=== PATIENT | male | born 1990 | race American Indian/Alaskan Native ===

== ENCOUNTER 2017-01-07 11:55 | Emergency (ER) | payer OTHER ==
[2017-01-07 12:05] VITALS: BP 132/52
--- NOTE | 2017-01-07 12:51 | Emergency Department Report ---
HPI - General Chief Complaint: Extremity Injury, Lower Time Seen by Provider: 01/07/17 12:36 - HPI HPI: 26-year-old male presents with bilateral knee pain times a couple years and right foot pain 2 days. Patient states he has had intermittent knee pain for the past couple years. Patient states he needs right foot pain began 2 days ago while he was at work. Patient states he stands for long period of time and works a lot. Patient states he kept working until today the pain got worse. Patient states pain as throbbing sharp tingling in nature. Patient rates pain about a 4 out of 10. Patient denies Calf tenderness bilaterally. Patient denies low back pain. Patient states he is getting some ringing in the past couple years. She denies fevers/chills/nausea/vomiting/abdominal pain/shortness of breath/ dizziness/near the problems ED Past Medical Hx - Past Medical History Previous Medical History?: No - Surgical History Past Surgical History?: No - Social History Smoking Status: Never Smoker Substance Use Type: Alcohol, Non Opiate Pain, Other - Medications Home Medications: Home Medications Medication Instructions Recorded Confirmed Last Taken Type Acetaminophen/Codeine [Tylenol #3] 1 tab PO Q6H PRN #15 tab 10/20/15 Unknown Rx Cyclobenzaprine [Flexeril 10 MG 10 mg PO QHS #20 tablet 01/07/17 Unknown Rx TAB] Ibuprofen [Motrin 800 MG tab] 800 mg PO TID #30 tablet 01/07/17 Unknown Rx ED Review of Systems ROS: Stated complaint: KNEE/FOOT PAIN /BODY ACHES /FREQUENT URINATION Other details as noted in HPI Constitutional: denies: chills, fever Eyes: denies: eye pain, eye discharge, vision change ENT: denies: ear pain, throat pain Respiratory: denies: cough, shortness of breath, wheezing Cardiovascular: denies: chest pain, palpitations Endocrine: no symptoms reported Gastrointestinal: denies: abdominal pain, nausea, vomiting, diarrhea, constipation Genitourinary: denies: urgency, dysuria, testicular pain, testicular mass Musculoskeletal: denies: back pain, joint swelling, arthralgia Skin: denies: rash, lesions Neurological: denies: headache, weakness, paresthesias Psychiatric: denies: anxiety, depression Hematological/Lymphatic: denies: easy bleeding, easy bruising Physical Exam - Physical Exam Vital Signs: Vital Signs 01/07/17 12:02 Temperature 98.5 F Pulse Rate 80 Respiratory 18 Rate Blood Pressure 132/52 O2 Sat by Pulse 95 Oximetry Physical Exam: GENERAL: Alert and oriented x3, no apparent distress, Normal Gait, atraumatic. HEAD: Head is normocephalic and a-traumatic. LUNGS: Symetrical with respiration, No wheezing, no rales or crackles, CTAB. HEART: S1, S2 present, regular rate and rhythm without murmur, no rubs, no gallops. ABDOMEN: No organomegaly was noted,Positive bowel sounds, soft, and non- distended. . Nontender to palpation on all Quadrants, NO CVA tenderness. EXTREMITIES/MUSCULOSKELETAL: No cyanosis, clubbing, rash, lesions or edema. Full ROM bilaterally. Pedal Pulses 2+ bilaterally. LE 5+ strength bilaterally. No ecchymosis, no bruising or lesions seen in foot bilaterally. straight leg raise negative. Negative Lalo,s sign bilaterally. Ankle intact bilaterally, nontender full range of motion NEUROLOGIC: No focal Deficit, Cranial nerves II through XII are grossly intact. No loss of sensation, PSYCHIATRIC: Mood is congruent with affect, denies suicidal or homicidal ideations. SKIN: Warm and dry, No lesions, No ulceration or induration present. ED Course Vital Signs 01/07/17 12:02 Temperature 98.5 F Pulse Rate 80 Respiratory 18 Rate Blood Pressure 132/52 O2 Sat by Pulse 95 Oximetry ED Medical Decision Making - Medical Decision Making 6-year-old male presents with bilateral foot pain ED course: Patient received Flexeril and Motrin and ED. Discussed the patient obesity and arthralgia go hand in hand. Discussed the patient weight loss management via primary care physician. Discussed referrals given and to follow-up. Discussed rest in a [place]anson. Elevated for the next couple of days. This current discomfort as heat therapy to knees 3 times a day. he is in no acute distress or respiratory distress. Patient understands instructions given and states will follow-up Critical care attestation.: If time is entered above; I have spent that time in minutes in the direct care of this critically ill patient, excluding procedure time. ED Disposition Clinical Impression: Arthralgia of both knees, Foot pain, right Disposition: DISCHARGED TO HOME OR SELFCARE Is pt being admited?: No Does the pt Need Aspirin: No Condition: Stable Instructions: Arthralgia (ED) Additional Instructions: Rest feet. Follow-up with primary care physician. Apply heat to affected knee and to foot or times a day. Prescriptions: Cyclobenzaprine [Flexeril 10 MG TAB] 10 mg PO QHS #20 tablet Ibuprofen [Motrin 800 MG tab] 800 mg PO TID #30 tablet Referrals: AFSHIN CAVAZOS MD [Referring] - 3-5 Days MINNIE PIPER MD [Referring] - 3-[address] [facility] [Outside] - 3-5 Days [facility] [Outside] - 3-5 Days [facility] [Outside] - 3-5 Days Forms: Work/School Release Form(ED) Time of Disposition: 13:27
[2017-01-07] MEDS ORDERED: FLEXERIL PO ONE (13:01)
[2017-01-07] MEDS ORDERED: MOTRIN PO ONE (13:02)
== END 2017-01-07 14:49 | disposition home or self-care (01) ==
LOC: ED 11:55
DX: M25.561 Pain in right knee (principal); M25.562 Pain in left knee; M79.671 Pain in right foot
CPT/HCPCS: 99282

== ENCOUNTER 2018-02-28 23:00 | Emergency (ER) | payer OTHER ==
[2018-02-28 23:07] VITALS: BP 148/84
--- NOTE | 2018-03-01 01:03 | Emergency Department Report ---
ED Back Pain/Injury HPI - General Chief Complaint: Back Pain/Injury Stated Complaint: BACK,BILATERAL ANKLE PAIN Time Seen by Provider: 03/01/18 00:58 Source: patient Limitations: No Limitations - History of Present Illness Initial Comments: This is a 27-year-old -[place] male presents with low back pain and bilateral ankle pain for 3 days. Patient reports low back pain is worse on the right side. Pain is intermittent and nonradiating. 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 He went to primary care provider Dr. Hart 3 months ago for the pain and advised it was related to weight. Patient reports having difficulty losing weight. He is taken Tylenol extra strength every now and for pain with no improvement of symptoms. He is now having bilateral ankle pain that is worse with ambulating and long periods of standing and bending. Patient reports pain is in when aggravated and constant. Patient denies swelling, injury, fall, numbness or tingling, fever, and erythema. MD Complaint: back pain (right flank) -: days(s) (3 days) Similar Symptoms Previously: No Place: home Radiation: none Severity: moderate Severity scale (0 -10): 6 Quality: aching Consistency: intermittent Improves With: none Worsens With: walking Context: unknown Associated Symptoms: difficulty walking. denies: confusion, weakness, chest pain, numbness, cough, difficulty urinating, diaphoresis, incontinence, fever/ chills, constipation, headaches, abdominal pain, loss of appetite, malaise, nausea/vomiting, rash, seizure, shortness of breath, syncope Treatments Prior to Arrival: NSAIDS - Related Data Previous Rx's Medication Instructions Recorded Last Taken Type Acetaminophen/Codeine [Tylenol #3] 1 tab PO Q6H PRN #15 tab 10/20/15 Unknown Rx Cyclobenzaprine [Flexeril 10 MG 10 mg PO QHS #20 tablet 01/07/17 Unknown Rx TAB] Ibuprofen [Motrin 800 MG tab] 800 mg PO TID #30 tablet 01/07/17 Unknown Rx Naproxen [Naprosyn] 500 mg PO TID PRN #15 tablet 03/01/18 Unknown Rx Allergies Allergy/AdvReac Type Severity Reaction Status Date / Time No Known Allergies Allergy Unverified 10/20/15 05:06 ED Review of Systems ROS: Stated complaint: BACK,BILATERAL ANKLE PAIN Other details as noted in HPI Constitutional: denies: chills, fever Respiratory: denies: cough, shortness of breath, wheezing Cardiovascular: denies: chest pain, palpitations Gastrointestinal: denies: abdominal pain, nausea, diarrhea Genitourinary: denies: urgency, dysuria Musculoskeletal: back pain (bilateral low back pain). denies: joint swelling, arthralgia (bilateral ankle pain) Skin: denies: rash, lesions Neurological: denies: headache, weakness, numbness, paresthesias Psychiatric: denies: anxiety, depression ED Back Pain Physical Exam - Exam General: Vital signs noted. No distress. Alert and acting appropriately. Morbidly Obese Musculoskeletal: Tenderness on right lateral malleus of the fibula, full range of motion, mild swelling Back/Abdomen: Yes Flank Tenderness (right flank tenderness on percussion), No Abdominal Tenderness, No Perithoracic Tenderness, No Perilumbar Tenderness, No Sacroiliac Tenderness, No Straight Leg Raise Pain Neuro: Yes Normal Sensation, Yes Normal DTR's, Yes Normal Gait, No Motor Weakness ED Course Vital Signs 02/28/18 02/28/18 23:01 23:11 Temperature 98.3 F 98.3 F Pulse Rate 78 81 Respiratory 18 17 Rate Blood Pressure 148/84 148/84 O2 Sat by Pulse 94 99 Oximetry ED Medical Decision Making - Radiology Data Radiology results: report reviewed X-ray of L-spine impression: Normal examination X-ray bilateral ankles impression: No acute fracture or dislocation. Moderate soft tissue swelling diffusely. - Medical Decision Making This is a 27-year-old morbidly obese male that presents with bilateral ankle pain and right flank pain. Patient was examined by me. Vitals are stable. Patient is in no acute distress. Obtain L-spine and bilateral ankle x-rays. Radiograph oriented by radiologist. X-ray of L-spine shows no acute findings. X-ray of bilateral ankles show no acute fracture or dislocation. Moderate soft tissue swelling diffusely. Patient informed of results. Educated patient on pain possibly associated with weight. Start naproxen 500 mg po every 6 hours, prn for pain control. Plan discussed with patient to discharge home and treat outpatient. He agrees with ER plan. Patient discharged home in stable condition. Follow up with PCP in 2-3 days. Critical care attestation.: If time is entered above; I have spent that time in minutes in the direct care of this critically ill patient, excluding procedure time. ED Disposition Clinical Impression: Bilateral ankle pain Qualifiers: Chronicity: acute Qualified Code(s): M25.571 - Pain in right ankle and joints of right foot; M25.572 - Pain in left ankle and joints of left foot Low back pain Qualifiers: Chronicity: acute Back pain laterality: bilateral Sciatica presence: without sciatica Qualified Code(s): M54.5 - Low back pain Obesity Qualifiers: Obesity type: due to excess calories Obesity classification: adult class 3 ( BMI >= 40) Serious obesity comorbidity presence: without serious comorbidity Body mass index: BMI 50.0-59.9 Qualified Code(s): E66.01 - Morbid (severe) obesity due to excess calories; Z68.43 - Body mass index (BMI) 50-59.9 , adult Disposition: TO HOME OR SELFCARE Is pt being admited?: No Does the pt Need Aspirin: No Condition: Stable Instructions: Lumbar Radiculopathy (ED), Arthralgia (ED) Additional Instructions: Rest Use ice or heat on affected area for 20 minutes and off for 2 hours. Take pain medication as needed for pain. Follow up with Primary Care Provider in 2-3 days. Prescriptions: Naproxen [Naprosyn] 500 mg PO TID PRN #15 tablet PRN Reason: Pain Referrals: SRI HART MD [Primary Care Provider] - 3-5 Days Time of Disposition: 02:34 Print Language: SPANISH
--- NOTE | 2018-03-01 02:04 | XRay Report ---
FINAL REPORT PROCEDURE: XR ANKLE BILAT 3+V TECHNIQUE: RIGHT ankle radiographs, AP, lateral, and oblique views. CPT 91206 HISTORY: bilateral ankle pain COMPARISON: No prior studies are available for comparison. FINDINGS: Fracture (s) and/or Dislocation(s): None. Alignment: Normal. Joint space(s): Normal. Soft tissues: Moderate soft tissue swelling diffusely. Bone mineralization: Normal. Foreign bodies: None. Calcaneal spurring: None. IMPRESSION: No acute fracture dislocation. Moderate soft tissue swelling diffusely..
--- NOTE | 2018-03-01 02:04 | XRay Report ---
FINAL REPORT PROCEDURE: XR SPINE LUMBOSACRAL 2-3V TECHNIQUE: Lumbar spine radiographs, frontal and lateral views. CPT 95993 HISTORY: low back pain, no injury COMPARISON: No prior studies are available for comparison. FINDINGS: Alignment: Normal . Vertebral body heights/Disk spaces: Normal . Fracture(s): None . Facets: Normal . Bone mineralization: Normal . IMPRESSION: Normal Examination
== END 2018-03-01 02:35 | disposition home or self-care (01) ==
LOC: ED 23:00
DX: M25.571 Pain in right ankle and joints of right foot (principal); M25.572 Pain in left ankle and joints of left foot; M54.5 Low back pain; E66.01 Morbid (severe) obesity due to excess calories; Z68.43 Body mass index [BMI] 50.0-59.9, adult
CPT/HCPCS: 72100; 99283